=== PATIENT | male | born 1980 | race Caucasian/White ===

== ENCOUNTER 2018-12-09 11:45 | Emergency (ER) | payer BC ==
[2018-12-09 11:55] VITALS: BMI 38.9
--- NOTE | 2018-12-09 13:51 | PDOC ---
History of Present Illness - General Chief Complaint: Pain, Acute Stated Complaint: ABDOMINAL PAIN Time Seen by Provider: 12/09/18 13:44 History Source: Patient Exam Limitations: No Limitations Past History - Travel Traveled outside of the country in the last 30 days: No Close contact w/someone who was outside of country & ill: No - Past Medical History Allergies/Adverse Reactions: Allergies Allergy/AdvReac Type Severity Reaction Status Date / Time No Known Allergies Allergy Verified 12/09/18 11:53 Home Medications: Ambulatory Orders NK [No Known Home Medication] 12/09/18 Asthma: Yes COPD: No - Immunization History Immunization Up to Date: Yes - Suicide/Smoking/Psychosocial Hx Smoking History: Current every day smoker Information on smoking cessation initiated: No Hx Alcohol Use: No Drug/Substance Use Hx: No Review of Systems - Review of Systems Able to Perform ROS?: Yes Comments:: 12/09/18 13:46 CONSTITUTIONAL: Absent: fever, chills, diaphoresis, generalized weakness, malaise, loss of appetite HEENT: Absent: rhinorrhea, nasal congestion, throat pain, throat swelling, difficulty swallowing, mouth swelling, ear pain, eye pain, visual Changes CARDIOVASCULAR: Absent: chest pain, loss of consciousness, palpitations, irregular heart rate, peripheral edema RESPIRATORY: Absent: cough, shortness of breath, dyspnea with exertion, orthopnea, wheezing, stridor, hemoptysis GASTROINTESTINAL: Present: LLQ pain Absent: abdominal distension, nausea, vomiting, diarrhea, constipation, melena, hematochezia GENITOURINARY: Absent: dysuria, frequency, urgency, hesitancy, hematuria, flank pain, genital pain MUSCULOSKELETAL: Absent: myalgia, arthralgia, joint swelling SKIN: Absent: rash, itching, pallor HEMATOLOGIC/IMMUNOLOGIC: Absent: easy bleeding, easy bruising, lymphadenopathy, frequent infections ENDOCRINE: Absent: unexplained weight gain, unexplained weight loss, heat intolerance, cold intolerance NEUROLOGIC: Absent: headache, focal weakness or paresthesias, dizziness, unsteady gait, seizure, mental status changes, bladder or bowel incontinence PSYCHIATRIC: Absent: anxiety, depression, suicidal or homicidal ideation, hallucinations. Is the patient limited German proficient: No *Physical Exam - Vital Signs Last Vital Signs Temp Pulse Resp BP Pulse Ox 98.0 F 100 H 18 133/79 96 12/09/18 11:53 12/09/18 11:53 12/09/18 11:53 12/09/18 11:53 12/09/18 11:53 - Physical Exam Comments: 12/09/18 13:51 GENERAL: Well developed, well nourished. Awake and alert. No acute distress. HEENT: Normocephalic, atraumatic. PERRLA, EOMI. No conjunctival pallor. Sclera are non- icteric. Moist mucous membranes. Oropharynx is clear. NECK: Supple. Full ROM. No JVD. Carotid pulses 2+ and symmetric, without bruits. No thyromegaly. No lymphadenopathy. CARDIOVASCULAR: Regular rate and rhythm. No murmurs, rubs, or gallops. Distal pulses are 2+ and symmetric. PULMONARY: No evidence of respiratory distress. Lungs clear to auscultation bilaterally. No wheezing, rales or rhonchi. ABDOMINAL: TTP of the LLQ. Soft. Non-tender. Non-distended. No rebound or guarding. No organomegaly. Normoactive bowel sounds. MUSCULOSKELETAL Normal range of motion at all joints. No bony deformities or tenderness. No CVA tenderness. EXTREMITIES: No cyanosis. No clubbing. No edema. No calf tenderness. SKIN: Warm and dry. Normal capillary refill. No rashes. No jaundice. NEUROLOGICAL: Alert, awake, appropriate. Cranial nerves 2-12 intact. No deficits to light touch and temperature in face, upper extremities and lower extremities. No motor deficits in the in face, upper extremities and lower extremities. Normoreflexic in the upper and lower extremities. Normal speech. Toes are down- going bilaterally. Gait is normal without ataxia. PSYCHIATRIC: Cooperative. Good eye contact. Appropriate mood and affect. ED Treatment Course - LABORATORY CBC & Chemistry Diagram: 12/09/18 14:10 12/09/18 14:20 Medical Decision Making - Medical Decision Making 12/09/18 16:50 The patient is a 38-year-old male with no past medical history who presents to the ER today with 4 days of left lower quadrant pain. He states that the pain comes and goes. He states that the pain is dependent on the way he moves. He describes the pain as a stabbing pain. He has not tried taking any medication for the pain. Denies fevers, chills, chest pain, short of breath, nausea, vomiting, diarrhea and constipation. Past surgical history of lap band placement in 2008. Surgery performed by Dr. Meek at [facility] in [facility]; last f/u in 2010. A/P: Left lower quadrant pain Differential diagnosis includes but is not limited to diverticulitis, colitis, viral syndrome, pyelo. Less likely an appendicitis or SBO On exam patient with tenderness to the left lower quadrant. Abdomen is otherwise soft with no rebound or guarding CTAP with IV contrast obtained. Results show approximately a 5.4 x 3.7 x 3.4 focus of mesenteric soft tissue stranding consistent with localized edema ventral to the lower third of the descending colon. 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 No evidence of acute diverticulitis at this time. Consult placed to Dr. Sidhu Pt currently eating Doritos in the vertical room. Appears well. Denies pain at this time. 12/09/18 17:[address] Sidhu; will come and evaluate in the ED *DC/Admit/Observation/Transfer Diagnosis at time of Disposition: LLQ abdominal pain - Discharge Dispostion Disposition: HOME Condition at time of disposition: Improved - Referrals - Patient Instructions Additional Instructions: Thank you for choosing [facility]. It was a pleasure taking care of you. 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 Mar Return to the Emergency Department if your symptoms worsen or persist or have other concerning symptoms. - Post Discharge Activity
[2018-12-09] MEDS ORDERED: SODIUM CHLORIDE 1,000 ML IV STA (13:52)
[2018-12-09] MEDS ORDERED: ACETAMINOPHEN 1000 MG/100 ML VIAL (NON FORMULARY) IVPB ONE (13:52)
[2018-12-09] MEDS ORDERED: ACETAMINOPHEN INJECTION 100 ML IVPB ONE (14:14)
[2018-12-09 14:32] LABS: BASO % 0.8 % (0-2.0); EOS % 1.5 % (0-4.5); HEMATOCRIT 43.8 % (35.4-49); LYMPH % 20.1 % (8-40); MCH 30.8 pg (25.7-33.7); MCHC 34.3 g/dl (32.0-35.9); MEAN PLT VOLUME 8.8 fl (7.5-11.1); MONO % 8.3 % (3.8-10.2); NEUT % 69.3 % (42.8-82.8); PLATELET COUNT 186 K/MM3 (134-434); RBC 4.86 M/mm3 (4.00-5.60); RDW 13.9 % (11.9-15.9); WHITE BLOOD COUNT 10.3 K/mm3 (4.0-10.0)
[2018-12-09 14:36] LABS: URINE APPEARANCE CLEAR; URINE BILIRUBIN NEGATIVE (NEGATIVE); URINE COLOR YELLOW; URINE GLUCOSE (UA) NEGATIVE (NEGATIVE); URINE KETONE NEGATIVE (NEGATIVE); URINE LEUK ESTERASE NEGATIVE (NEGATIVE); URINE NITRITE NEGATIVE (NEGATIVE); URINE PROTEIN NEGATIVE (NEGATIVE); URINE UROBILINOGEN 0.2 mg/dL (0.2-1.0)
[2018-12-09 15:02] LABS: INR 0.97 (0.83-1.09); PROTHROMBIN TIME (PATIENT) 11.4 SEC (9.7-13.0)
[2018-12-09 15:08] LABS: ALBUMIN 3.3 g/dl (3.4-5.0); ALK PHOS 86 U/L (45-117); ANION GAP 3 MMOL/L (8-16); BILIRUBIN,TOTAL 0.3 mg/dL (0.2-1); BLOOD UREA NITROGEN 11 mg/dL (7-18); CALCIUM 9.2 mg/dL (8.5-10.1); CHLORIDE 105 mmol/L (98-107); CO2 28 mmol/L (21-32); CREATININE 0.7 mg/dL (0.55-1.3); GLUCOSE,RANDOM 107 mg/dL (74-106); POTASSIUM 4.3 mmol/L (3.5-5.1); SGOT/AST 15 U/L (15-37); SGPT/ALT 22 U/L (13-61); SODIUM 136 mmol/L (136-145)
--- NOTE | 2018-12-09 19:54 | PDOC ---
*Physical Exam - Vital Signs Last Vital Signs Temp Pulse Resp BP Pulse Ox 98.1 F 83 18 127/76 97 12/09/18 17:41 12/09/18 17:41 12/09/18 17:41 12/09/18 17:41 12/09/18 17:41 ED Treatment Course - LABORATORY CBC & Chemistry Diagram: 12/09/18 14:10 12/09/18 14:20 - ADDITIONAL ORDERS Additional order review: Laboratory Results 12/09/18 12/09/18 12/09/18 14:20 14:10 14:10 PT with INR 11.40 INR 0.97 Sodium 136 Potassium 4.3 Chloride 105 Carbon Dioxide 28 Anion Gap 3 L BUN 11 Creatinine 0.7 Creat Clearance w eGFR 124.90 Random Glucose 107 H Calcium 9.2 Total Bilirubin 0.3 AST 15 ALT 22 Alkaline Phosphatase 86 Total Protein 7.0 Albumin 3.3 L Urine Color Yellow Urine Appearance Clear Urine pH 5.0 Ur Specific [place] 1.025 Urine Protein Negative Urine Glucose (UA) Negative Urine Ketones Negative Urine Blood Negative Urine Nitrite Negative Urine Bilirubin Negative Urine Urobilinogen 0.2 Ur Leukocyte Esterase Negative 12/09/18 14:10 RBC 4.86 MCV 90.0 MCHC 34.3 RDW 13.9 MPV 8.8 Neutrophils % 69.3 Lymphocytes % 20.1 Monocytes % 8.3 Eosinophils % 1.5 Basophils % 0.8 - Medications Given in the ED: ED Medications Discontinued Medications Generic Name Dose Route Start Last Admin Trade Name Freq PRN Reason Stop Dose Admin Acetaminophen 1,000 mg 12/09/18 13:52 12/09/18 14:29 Ofirmev Injection - IVPB 12/09/18 13:53 1,000 mg ONCE ONE Administration Sodium Chloride 1,000 mls @ 1,000 mls/hr 12/09/18 13:52 12/09/18 14:29 Normal Saline - IV 12/09/18 14:51 1,000 mls/hr ASDIR STA Administration Medical Decision Making - Medical Decision Making Patient signed out to me by PALMER Fan Patient resting in NAD Spoke to Dr. Sidhu, who states currently swamped and about to operate; states patient would need to f/u with his prior bariatric surgeon; tx for omental infarction is NSAIDs Patient resting in NAD; is in no pain and was already tolerating PO as was told during signout Patient's prior surgeon was Dr. Mar (from [facility]) Patient appears well; advised to f/u with his prior bariatric surgeon Stable for d/c Plan d/c with Dr. Argueta 12/09/18 19:49 *DC/Admit/Observation/Transfer Diagnosis at time of Disposition: LLQ abdominal pain - Discharge Dispostion Disposition: HOME Condition at time of disposition: Improved Decision to Admit order: No - Referrals - Patient Instructions Additional Instructions: Thank you for choosing [facility]. It was a pleasure taking care of you. 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 Mar Return to the Emergency Department if your symptoms worsen or persist or have other concerning symptoms. - Post Discharge Activity
[2018-12-09 20:16] VITALS: BP 133/77; PULSE 78; TEMP 98.3
== END 2018-12-09 20:24 | disposition home or self-care (01) ==
LOC: JER 11:45
PROC: 3E033NZ Introduction of Analgesics, Hypnotics, Sedatives into Peripheral Vein, Percutaneous Approach (ICD-10-PCS; principal; 2018-12-09)
DX: R10.32 Left lower quadrant pain (principal); Z98.84 Bariatric surgery status
CPT/HCPCS: 36415; 74177-TC; 80053; 81003; 85025; 85610; 87086; 99284-25; J0131; J7030

== ENCOUNTER 2019-08-29 12:48 | Inpatient (IN) | payer BC ==
[2019-08-29] MEDS ORDERED: SODIUM CHLORIDE 0.9% 500 ML INFUS.BAG IV ONE (15:07)
[2019-08-29] MEDS ORDERED: PIPERACILLIN/TAZOB 4.5 GM 4.5 GM in DEXTROSE 5%-WATER 100 ML IVPB ONE (15:07)
--- NOTE | 2019-08-29 15:16 | PDOC ---
History of Present Illness - General Chief Complaint: Abscess Boil Stated Complaint: CYST/ RIGHT BUTTOCK Time Seen by Provider: 08/29/19 14:54 History Source: Patient Exam Limitations: No Limitations - History of Present Illness Initial Comments: 39 y/o F, w/ pmh of multiple lower back abscess, presents to the ED c/o of redness, pain and swelling of the right buttocks. Pt states that he noticed pain and tenderness 7 days ago which has worsened since onset. He has not taken anything to improve his pain. He reports hx of multiple lower back abscess above his coccyx. Denies f/c/n/v/d/sob/chest pain, abdominal pain. 08/29/19 15:09 08/29/19 15:54 Associated Symptoms: reports: denies symptoms. denies: chest pain, cough, diaphoresis, nausea/vomiting, shortness of breath Past History - Travel Traveled outside of the country in the last 30 days: No Close contact w/someone who was outside of country & ill: No - Past Medical History Allergies/Adverse Reactions: Allergies Allergy/AdvReac Type Severity Reaction Status Date / Time No Known Allergies Allergy Verified 08/29/19 13:02 Home Medications: Ambulatory Orders NK [No Known Home Medication] 12/09/18 Asthma: Yes Cardiac Disorders: Yes COPD: No - Immunization History Immunization Up to Date: Yes - Psycho Social/Smoking Cessation Hx Smoking History: Current every day smoker Number of Cigarettes Smoked Daily: 20 Information on smoking cessation initiated: No Hx Alcohol Use: No Drug/Substance Use Hx: No Review of Systems - Review of Systems Able to Perform ROS?: Yes Is the patient limited Pakistani proficient: No Constitutional: Yes: Symptoms Reported. No: Chills, Fever HEENTM: Yes: Symptoms Reported. No: Blurred Vision, Tearing Respiratory: Yes: Symptoms reported. No: Cough, Shortness of Breath, Wheezing Cardiac (ROS): Yes: Symptoms Reported. No: Chest Pain, Chest Tightness ABD/GI: Yes: Symptoms Reported. No: Abdominal Distended, Diarrhea, Nausea : Yes: Symptoms Reported, Pain (perianal pain), Lesions. No: Burning, Dysuria , Discharge, Testicular Mass, Testicular Swelling, Testicular Pain Neurological: Yes: Symptoms reported. No: Headache, Numbness All Other Systems: Reviewed and Negative *Physical Exam - Vital Signs Last Vital Signs Temp Pulse Resp BP Pulse Ox 98.7 F 115 H 18 134/99 96 08/29/19 13:03 08/29/19 13:03 08/29/19 13:03 08/29/19 13:03 08/29/19 13:03 - Physical Exam General Appearance: Yes: Nourished, Appropriately Dressed, Apparent Distress HEENT: positive: EOMI, SHAN, Normal ENT Inspection, Pharynx Normal Neck: positive: Trachea midline, Normal Thyroid, Supple Respiratory/Chest: positive: Lungs Clear, Normal Breath Sounds. negative: Crackles, Wheezing Cardiovascular: positive: Regular Rhythm, Regular Rate, S1, S2. negative: Murmur, Gallop/S3, Gallop/S4 Vascular Pulses: Dorsalis-Pedis (R): 2+, Doralis-Pedis (L): 2+ Gastrointestinal/Abdominal: positive: Normal Bowel Sounds, Soft. negative: Guarding, Rebound Male Genitalia: positive: other (perianal mass 8x5, erythema, swelling, nonfluctuant, deep and firm, tender to touch, appears to extend toward the raphe ) Neurologic: positive: Fully Oriented, Alert, Normal Mood/Affect ED Treatment Course - LABORATORY CBC & Chemistry Diagram: 08/29/19 15:05 08/29/19 15:05 - RADIOLOGY Radiology Studies Ordered: Category Date Time Status PELVIS CT WITH CONTRAST [CT] Stat CT Scan 08/29/19 15:04 Ordered Medical Decision Making - Medical Decision Making 39 y/o F, w/ pmh of multiple lower back abscess, presents to the ED c/o of redness, pain and swelling of the right buttocks. #Right perianal abscess 2/2 to perianal vs perirectal abscess- need to r/o pt is not diabetic 8x5 tender, abscess, deep CBC, CMP, PT/INR IVF CT pelvis- IV contrast and contrast enema Temp of 100.[address] Castro, he advised ED to attempt drainage of the abscess, however, due to the size and difficulty accessing it We will defer to surgery to drain it. Will be admitting pt tonight for surgical consult in the morning. 08/29/19 15:54 08/29/19 16:07 08/29/19 19:02 Discharge - Discharge Information Problems reviewed: Yes Clinical Impression/Diagnosis: Perianal abscess Condition: Stable - Admission Yes - Follow up/Referral - Patient Discharge Instructions - Post Discharge Activity
[2019-08-29] MEDS ORDERED: PIPERACILLIN/TAZOB 4.5 GM 4.5 GM/100 ML BAG IVPB ONE (15:23)
[2019-08-29 15:26] LABS: EOS % 0.8 % (0-4.5); HEMATOCRIT 44.7 % (35.4-49); HEMOGLOBIN 14.9 GM/dL (11.7-16.9); LYMPH % 14.3 % (8-40); MCH 29.8 pg (25.7-33.7); MCHC 33.4 g/dl (32.0-35.9); MEAN CELL VOLUME 89.4 fl (80-96); MEAN PLT VOLUME 8.6 fl (7.5-11.1); MONO % 10.9 % (3.8-10.2); PLATELET COUNT 217 K/MM3 (134-434); RDW 13.5 % (11.9-15.9); WHITE BLOOD COUNT 12.1 K/mm3 (4.0-10.0)
[2019-08-29 15:39] LABS: INR 1.02 (0.83-1.09)
--- NOTE | 2019-08-29 15:49 | PDOC ---
Documentation entered by Karen Mcdonald SCRIBE, acting as scribe for Alessandro Garcia MD. Alessandro Garcia MD: This documentation has been prepared by the Harry cornell Brenda, SCRIBE, under my direction and personally reviewed by me in its entirety. I confirm that the documentation accurately reflects all work, treatment, procedures, and medical decision making performed by me. Attending Attestation - Resident Resident Name: Devang Brizuela - ED Attending Attestation I have performed the following: I have examined & evaluated the patient, The case was reviewed & discussed with the resident, I agree w/resident's findings & plan, Exceptions are as noted - HPI HPI: 08/29/19 15:29 The patient is a 39 year old female, with a significant PMH of asthma and multiple lower back abscesses (above coccyx) who presents to the emergency department due to 7 days of worsening redness, pain and swelling of the right buttocks, which is painful and tender The patient denies chest pain, shortness of breath, headache and dizziness. Denies fever, chills, nausea, vomiting, diarrhea and constipation. Denies any urinary symptoms. Allergies: NKA Past surgical history: Lap Band (2008) Social history: Current everyday smoker - Physicial Exam PE: 08/29/19 15:47 Patient is awake and alert, obese, in no significant distress Normocephalic and atraumatic PERRLA, EOMI CTA RRR Abdomen is soft, nontender, nondistended + Large, approximately 10 to 12 cm area of well demarcated erythema to the right gluteal area; with a central approximately 6 cm area of induration, which is tender to palpation - Medical Decision Making 08/29/19 15:49 39-year-old male presents with signs and symptoms of acute perirectal/perianal abscess. Will obtain CBC/CMP/pelvic CT with IV and rectal contrast. Will administer IV Zosyn. Will reassess. Will consider admission for OR incision and drainage by general surgery.
[2019-08-29 16:07] LABS: ALBUMIN 3.2 g/dl (3.4-5.0); BILIRUBIN,TOTAL 0.4 mg/dL (0.2-1); BLOOD UREA NITROGEN 10.9 mg/dL (7-18); CALCIUM 8.9 mg/dL (8.5-10.1); CREATININE 0.7 mg/dL (0.55-1.3); POTASSIUM 4.3 mmol/L (3.5-5.1); TOT PROT 7.1 g/dl (6.4-8.2)
[2019-08-29] MEDS ORDERED: VANCOMYCIN 1 GM in D5W (PRE-DOCKED) 1,000 MG/250 ML IVPB ONE (19:11)
--- NOTE | 2019-08-29 19:22 | PN ---
Teaching Attending Note Name of Resident: Jack Mak ATTENDING PHYSICIAN STATEMENT I saw and evaluated the patient. I reviewed the resident's note and discussed the case with the resident. I agree with the resident's findings and plan as documented. SUBJECTIVE: Patient is a 39 year old woman with a significant PMH of ?Prediabetes, Lap band surgery, Asthma, Tobacco use and multiple lower back abscesses (above coccyx) who presents to the emergency department due to 7 days of worsening redness, pain and swelling of the right buttocks, which is painful and tender. The patient denies chest pain, shortness of breath, headache and dizziness. Denies fever, chills, nausea, vomiting, diarrhea and constipation. No recent travel or sick contacts. 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 Lives at home with . Denies any urinary symptoms. Denies alcohol or illicit drug use. Has FH of DM and cervical cancer. OBJECTIVE: Alert Vital Signs Period Temp Pulse Resp BP Sys/Garcia Pulse Ox Last 24 Hr 98.4 F-100.3 F 92-115 18-18 125-134/58-99 96-98 HEENT: No Jaundice, eye redness or discharge, PERRLA, EOMI. Normocephalic, atraumatic. External ears are normal and hearing is grossly intact. No nasal discharge. Neck: Supple, nontender. No palpable adenopathy or thyromegaly. No JVD Chest: Good effort. Clear to auscultation and percussion. Heart: Regular. No S3, rub or murmur Abdomen: Not distended, soft, nontender and no HSM. No rebound or guarding. Normal bowel sounds. Ext: Peripheral pulses intact. No leg edema. Skin: Warm and dry. No petechiae, rash or ecchymosis. An area of erythema to the right gluteal area about 10 cm X 12 cm; with a central area of induration, tender to palpation. Neuro: Alert. Oriented x3. CN 2-12 grossly intact. Sensation grossly intact in all four extremities and DTR are symmetric. Psych: Appropriate mood and affect. Good insight. Current Medications Generic Name Dose Route Start Last Admin Trade Name Freq PRN Reason Stop Dose Admin Acetaminophen 1,000 mg 08/29/19 20:41 Ofirmev Injection - IVPB Q6H PRN PAIN LEVEL 1-5 Sodium Chloride 1,000 mls @ 100 mls/hr 08/29/19 23:00 Normal Saline - IV ASDIR SAJAN Vancomycin HCl 1,000 mg/ 250 mls @ 166.667 mls/hr 08/30/19 10:00 Dextrose IVPB Q12H SAJAN Protocol Piperacillin Sod/Tazobactam 50 mls @ 100 mls/hr 08/30/19 02:00 Sod 3.375 gm/ Dextrose IVPB Q8H-IV SAJAN Protocol Insulin Aspart 1 vial 08/29/19 20:45 Novolog Vial Sliding Scale - SQ Q6H SAJAN Protocol Nicotine 21 mg 08/29/19 20:45 Nicoderm Patch - TD DAILY SAJAN Nicotine Polacrilex 4 mg 08/29/19 20:33 Nicorette Gum - BUC Q2H PRN NICOTINE REPLACEMENT RX Home Medications Medication Instructions Recorded NK [No Known Home Medication] 12/09/18 Abnormal Lab Results 08/29/19 08/29/19 15:05 15:05 WBC 12.1 H Absolute Neuts (auto) 8.8 H Monocytes % 10.9 H Anion Gap 5 L AST 14 L Albumin 3.2 L ASSESSMENT AND PLAN: 1. Perianal abscess - Results of pelvic CT pending. Being treated with IV Vancomycin and Zosyn. Will keep him NPO. Surgery consulted. Will continue comprehensive care for all of patients comorbid conditions. 2. Hypoalbuminemia - Possibly due to combined effects of malnutrition and inflammation associated with comorbid chronic conditions. Will ensure adequate dietary protein intake and also consult database support. Urinalysis pending. 3. Prediabetes - Will implement sliding scale insulin regimen. Check HbA1c. Provide comprehensive diabetes care with patient teaching and counseling about the importance of adherence to prescribed diabetes regimen, euglycemia, eye care and foot care. 4. Tobacco Use Counseled on risks associated with tobacco use. We will provide patient all the necessary assistance to facilitate smoking cessation and prescribe Nicotine patch. 5. Obesity Counseled on the risks associated with obesity. Will provide patient all the necessary assistance, counseling and positive reinforcement to facilitate weight loss. Consult database support. 6. DVT prophylaxis - SCD, Early ambulation. 7. Advance directives - Full code
[2019-08-29] MEDS ORDERED: VANCOMYCIN 1 GRAM (PRE-DOCKED) 1,000 MG/250 ML BAG IVPB ONE (19:37)
--- NOTE | 2019-08-29 19:44 | HP ---
CHIEF COMPLAINT: Right buttock pain PCP: HISTORY OF PRESENT ILLNESS: Patient is a 39 year old male with distant history of diabetes mellitus ( currently not on any medications), obesity, prior maricruz-anal abscess, presents with complaint of right buttock pain. States that symptoms began 7 days ago, starting as a small cyst that spontaneously ruptured in warm shower. The area subsequently became more painful, erythematous, and progressed indurated over the past three days. Denies mechanical trauma to the area. Denies recent antibiotics. Patient endorses similar symptoms approx 14 years ago, with right buttock perianal abscess that was treated with incision and drainage. Since that episode, patient has only had small cysts in the area, that spontaneously resolved without intervention or antibiotics. Patient admits subjective chills, and sweats. Denies chest pain, palpitations, shortness of breath, abdominal pain , nausea, vomiting, hematemesis, diarrhea, constipation, melena, hematochezia. ER course was notable for: (1) CT abdomen pelvis (2) WBC 12.1, temperature 100.3F orally (3) Recent Travel: denies PAST MEDICAL HISTORY: diabetes mellitus, obesity, maricruz-anal abscess PAST SURGICAL HISTORY: laparoscopic gastric band (15 years ago), incision and drainage perianal abscess (14 years ago), knee surgery Social History: Lives with . 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 Independent in activities daily living. Smoking: Currently smokes approx 20 cigarettes per day; smoking for past 20 years Alcohol: Denies alcohol consumption Drugs: Denies illicit drug use. Allergies No Known Allergies Allergy (Verified 08/29/19 13:02) HOME MEDICATIONS: Home Medications Medication Instructions Recorded NK [No Known Home Medication] 12/09/18 REVIEW OF SYSTEMS CONSTITUTIONAL: Absent: fever, chills, diaphoresis, generalized weakness, malaise, loss of appetite, weight change HEENT: Absent: rhinorrhea, nasal congestion, throat pain, throat swelling, difficulty swallowing, mouth swelling, ear pain, eye pain, visual changes CARDIOVASCULAR: Absent: chest pain, syncope, palpitations, irregular heart rate, lightheadedness , peripheral edema RESPIRATORY: Absent: cough, shortness of breath, dyspnea with exertion, orthopnea, wheezing, stridor, hemoptysis GASTROINTESTINAL: Absent: abdominal pain, abdominal distension, nausea, vomiting, diarrhea, constipation, melena, hematochezia GENITOURINARY: Absent: dysuria, frequency, urgency, hesitancy, hematuria, flank pain, genital pain MUSCULOSKELETAL: Absent: myalgia, arthralgia, joint swelling, back pain, neck pain SKIN: Admits: pain at right buttock. Absent: itching, pallor HEMATOLOGIC/IMMUNOLOGIC: Absent: easy bleeding, easy bruising, lymphadenopathy, frequent infections ENDOCRINE: Absent: unexplained weight gain, unexplained weight loss, heat intolerance, cold intolerance NEUROLOGIC: Absent: headache, focal weakness or paresthesias, dizziness, unsteady gait, seizure, mental status changes, bladder or bowel incontinence PSYCHIATRIC: Absent: anxiety, depression, suicidal or homicidal ideation, hallucinations. PHYSICAL EXAMINATION Vital Signs - 24 hr 08/29/19 08/29/19 13:03 19:04 Temperature 98.7 F 100.3 F H Pulse Rate 115 H Pulse Rate [ 92 H Radial] Respiratory 18 18 Rate Blood Pressure 134/99 Blood Pressure 132/58 L [Right Arm] O2 Sat by Pulse 96 98 Oximetry (%) GENERAL: Awake, alert, and fully oriented, in no acute distress. HEAD: Normal with no signs of trauma. EYES: Pupils equal, round and reactive to light, extraocular movements intact, sclera anicteric, conjunctiva clear. EARS, NOSE, THROAT: Oropharynx clear without exudates. Moist mucous membranes. NECK: Normal range of motion, supple without lymphadenopathy, JVD, or masses. LUNGS: Breath sounds equal, clear to auscultation bilaterally. No wheezes, and no crackles. No accessory muscle use. HEART: Regular rate and rhythm, normal S1 and S2 without murmur, rub or gallop. ABDOMEN: Obese abdomen. Soft, nontender, not distended. Normoactive bowel sounds. No guarding, no rebound tenderness. Laparoscopic surgery scars well healed, clean, dry. MUSCULOSKELETAL: Normal range of motion at all joints. No bony deformities or tenderness. Strength 5/5 bilateral upper and lower extremities. EXTREMITIES: 2+ radial, dorsalis pedis pulses bilaterally, warm, well-perfused. No cyanosis. No clubbing. No peripheral edema bilateral lower extremities. NEUROLOGICAL: Cranial nerves II-XII intact. Normal speech. Negative gross focal deficits. PSYCHIATRIC: Cooperative. Appropriate mood and affect. SKIN: Area of 10cm x 6cm erythma with 5cm x 5m area of induration at right lower buttock. Negative fluctuance, drainage, bleeding, or streaking. Tender to palpation. Laboratory Results - last 24 hr 08/29/19 08/29/19 08/29/19 15:05 15:05 15:05 WBC 12.1 H RBC 5.00 Hgb 14.9 Hct 44.7 MCV 89.4 MCH 29.8 MCHC 33.4 RDW 13.5 Plt Count 217 MPV 8.6 Absolute Neuts (auto) 8.8 H Neutrophils % 73.0 Lymphocytes % 14.3 D Monocytes % 10.9 H Eosinophils % 0.8 Basophils % 1.0 Nucleated RBC % 0 PT with INR 12.00 INR 1.02 Sodium 139 Potassium 4.3 Chloride 105 Carbon Dioxide 29 Anion Gap 5 L BUN 10.9 Creatinine 0.7 Est GFR (CKD-EPI)AfAm 135.86 Est GFR (CKD-EPI)NonAf 117.22 Random Glucose 102 Calcium 8.9 Total Bilirubin 0.4 AST 14 L ALT 21 Alkaline Phosphatase 78 Total Protein 7.1 Albumin 3.2 L Blood Type Antibody Screen 08/29/19 15:05 WBC RBC Hgb Hct MCV MCH MCHC RDW Plt Count MPV Absolute Neuts (auto) Neutrophils % Lymphocytes % Monocytes % Eosinophils % Basophils % Nucleated RBC % PT with INR INR Sodium Potassium Chloride Carbon Dioxide Anion Gap BUN Creatinine Est GFR (CKD-EPI)AfAm Est GFR (CKD-EPI)NonAf Random Glucose Calcium Total Bilirubin AST ALT Alkaline Phosphatase Total Protein Albumin Blood Type A POSITIVE Antibody Screen Negative ASSESSMENT/PLAN: Patient is a 39 year old male with distant history of diabetes mellitus ( currently not on any medications), obesity, prior maricruz-anal abscess, presents with complaint of right buttock pain. Admitted for right perirectal abscess. Right perirectal abscess -WBC 12.1, temperature 100.3F orally -CT abdomen/ pelvis reveals 4cm x 3.2cm abscess in right paramedian subcutaneous gluteal fat; negative intrapelvic fluid (preliminary read). Follow official reading. -Follow blood cultures -Continue Vancomycin 1000mg IV BID, Zosyn 3.375mg IV Q8 Hours -General surgery consult (Dr. Bhatt) -ID consult (Dr. Mercedes) -NPO after midnight in anticipation of surgical incision and drainage. Pt/ INR , PTT, type and cross ordered. -IV normal saline at 100mL/ hour -Pain control with Ofirmev 1000mg IV Q6 hours PRN History of diabetes mellitus -Obtain HbA1c. Patient reports history of diabetes that resolved after laparoscopic gastric band surgery 15 years ago. Patient currently not on any oral hypglycemics, or insulin. -For now, will monitor with fingerstick blood glucose monitoring Q6 hours, and cover with insulin sliding scale. Obesity -BMI 38; s/p laparoscopic gastric band surgery. -architectural sales consultant consult. Nicotine dependence -Counselled regarding smoking cessation -Nicotine patch 21mg transdermal daily -Nicorette gum 4mg Q2 hours PRN FEN -IV normal saline at 100mL/ hour -Follow BMP -Clear liquid diet. NPO after midnight Prophylaxis -SCDs bilateral lower extremities. Holding chemical anticoagulation pending general surgery evaluation Disposition -Admit to medical surgical floor. Visit type - Emergency Visit Emergency Visit: Yes ED Registration Date: 08/29/19 Care time: The patient presented to the Emergency Department on the above date and was hospitalized for further evaluation of their emergent condition. - New Patient This patient is new to me today: Yes Date on this admission: 08/30/19 - Critical Care Critical Care patient: No ATTENDING PHYSICIAN STATEMENT I saw and evaluated the patient. I reviewed the resident's note and discussed the case with the resident. I agree with the resident's findings and plan as documented. SUBJECTIVE: OBJECTIVE: ASSESSMENT AND PLAN:
[2019-08-29] MEDS ORDERED: NICOTINE POLACRILEX 4 MG GUM BUC PRN (20:33)
[2019-08-29] MEDS ORDERED: INSULIN SLIDING SCALE (NOVOLOG) 1 VIAL SQ SCH (20:45)
[2019-08-29] MEDS: NICOTINE 21 MG/24 HOURS TOPICAL PATCH TD SCH (20:50)
[2019-08-29] MEDS: SODIUM CHLORIDE 1,000 ML IV SCH (23:20)
[2019-08-29] MEDS: ACETAMINOPHEN 1000 MG/100 ML VIAL (NON FORMULARY) IVPB PRN (23:36)
[2019-08-30] MEDS ORDERED: DEXTROSE 5%-WATER - 50 ML IVPB ONE ×2 (00:47→09:19)
[2019-08-30] MEDS ORDERED: PIPERACILLIN/TAZOBACTAM 3.375 GM VIAL IVPB ONE ×2 (00:47→09:19)
[2019-08-30] MEDS: PIPERACILLIN/TAZOB 3.375 GM 3.375 GM in DEXTROSE 5%-WATER - 50 ML IVPB SCH ×2 (01:40→09:29)
[2019-08-30] MEDS ORDERED: PIPERACILLIN/TAZOB 3.375 GM 3.375 GM in DEXTROSE 5%-WATER - 50 ML IVPB SCH (02:00)
[2019-08-30] MEDS ORDERED: VANCOMYCIN 1 GRAM (PRE-DOCKED) 1,000 MG/250 ML BAG IVPB SCH (08:00)
[2019-08-30] MEDS: INSULIN SLIDING SCALE (NOVOLOG) 1 VIAL SQ SCH ×2 (08:12→12:11)
[2019-08-30 09:15] LABS: HEMATOCRIT 41.6 % (35.4-49); HEMOGLOBIN 14.1 GM/dL (11.7-16.9); MCH 29.9 pg (25.7-33.7); MCHC 33.8 g/dl (32.0-35.9); MEAN CELL VOLUME 88.4 fl (80-96); MEAN PLT VOLUME 8.7 fl (7.5-11.1); PLATELET COUNT 200 K/MM3 (134-434); RBC 4.71 M/mm3 (4.00-5.60); RDW 13.9 % (11.9-15.9); WHITE BLOOD COUNT 9.7 K/mm3 (4.0-10.0)
[2019-08-30 09:25] LABS: ALBUMIN 2.8 g/dl (3.4-5.0); BILIRUBIN,TOTAL 0.5 mg/dL (0.2-1); BLOOD UREA NITROGEN 8.2 mg/dL (7-18); CALCIUM 8.4 mg/dL (8.5-10.1); CREATININE 0.7 mg/dL (0.55-1.3); PHOSPHOROUS 3.6 mg/dL (2.5-4.9); POTASSIUM 4.1 mmol/L (3.5-5.1); TOT PROT 6.2 g/dl (6.4-8.2)
[2019-08-30] MEDS: NICOTINE 21 MG/24 HOURS TOPICAL PATCH TD SCH (09:29)
[2019-08-30] MEDS: SODIUM CHLORIDE 1,000 ML IV SCH (09:30)
[2019-08-30 09:36] LABS: INR 1.04 (0.83-1.09); PROTHROMBIN TIME (PATIENT) 12.3 SEC (9.7-13.0)
[2019-08-30 09:38] LABS: ACTIVATED PTT 29.5 SECONDS (25.2-36.5)
[2019-08-30] MEDS ORDERED: VANCOMYCIN 1,000 MG in DEXTROSE 5%-WATER - 250 ML IVPB SCH (10:00)
[2019-08-30] MEDS ORDERED: LIDOCAINE 1%-EPI 1:100,000 30 ML MDV IJ ONE (10:15)
--- NOTE | 2019-08-30 12:02 | PN ---
Progress Note (short form) - Note Progress Note: surgery i&d done of maricruz-rectal abscess at 1:00 position in lithotomy. pressure dressing today. recommend sitz bath tid with epsom salt starting tomorrow. recommend 5 days augmentin. f/u in 3 weeks to r/o fistula formation.
[2019-08-30] MEDS: ACETAMINOPHEN 1000 MG/100 ML VIAL (NON FORMULARY) IVPB PRN (13:06)
--- NOTE | 2019-08-30 13:11 | PN ---
Progress Note (short form) - Note Progress Note: ID CONSULT DICTATED S/P I&D R PERIRECTAL ABSCESS MAY SUBSTITUTE PO AUGMENTIN X 7D LOCAL WOUND CARE OUTPATIENT SURGICAL F/U
[2019-08-30 14:08] VITALS: BP 120/76; PULSE 72; TEMP 98.6
[2019-08-30 14:10] VITALS: BMI 38.0
--- NOTE | 2019-08-30 15:29 | DS ---
Physical Exam: SUBJECTIVE: Complains of pain/swelling/tenderness R buttock. OBJECTIVE: Fever resolved. Hemodynamically stable. Last Vital Signs Temp Pulse Resp BP Pulse Ox 98.6 F 72 18 120/76 98 08/30/19 11:00 08/30/19 11:00 08/30/19 11:00 08/30/19 11:00 08/30/19 09:00 PHYSICAL EXAM HEENT - Atraumatic, Normocephalic. Heart - S1, S2, RRR Lungs - clear to auscultation Abdomen - soft, non-tender. Bowel Sounds normal. - R buttock discrete erythema/swelling/tenderness Extremities - no edema, no calf tenderness. Neuro - AAO x 3. Tone/Power normal all extremities. Laboratory Results - last 24 hr 08/29/19 08/29/19 08/29/19 08:16 15:05 15:05 WBC 12.1 H RBC 5.00 Hgb 14.9 Hct 44.7 MCV 89.4 MCH 29.8 MCHC 33.4 RDW 13.5 Plt Count 217 MPV 8.6 Absolute Neuts (auto) 8.8 H Neutrophils % 73.0 Lymphocytes % 14.3 D Monocytes % 10.9 H Eosinophils % 0.8 Basophils % 1.0 Nucleated RBC % 0 PT with INR INR PTT (Actin FS) Sodium 139 Potassium 4.3 Chloride 105 Carbon Dioxide 29 Anion Gap 5 L BUN 10.9 Creatinine 0.7 Est GFR (CKD-EPI)AfAm 135.86 Est GFR (CKD-EPI)NonAf 117.22 POC Glucometer Random Glucose 102 Hemoglobin A1c % Calcium 8.9 Phosphorus Magnesium Total Bilirubin 0.4 AST 14 L ALT 21 Alkaline Phosphatase 78 Total Protein 7.1 Albumin 3.2 L Blood Type A POSITIVE Antibody Screen 08/29/19 08/29/19 08/29/19 15:05 15:05 21:34 WBC RBC Hgb Hct MCV MCH MCHC RDW Plt Count MPV Absolute Neuts (auto) Neutrophils % Lymphocytes % Monocytes % Eosinophils % Basophils % Nucleated RBC % PT with INR 12.00 INR 1.02 PTT (Actin FS) Sodium Potassium Chloride Carbon Dioxide Anion Gap BUN Creatinine Est GFR (CKD-EPI)AfAm Est GFR (CKD-EPI)NonAf POC Glucometer 153 Random Glucose Hemoglobin A1c % Calcium Phosphorus Magnesium Total Bilirubin AST ALT Alkaline Phosphatase Total Protein Albumin Blood Type A POSITIVE Antibody Screen Negative 08/30/19 08/30/19 08/30/19 06:19 08:16 08:16 WBC 9.7 RBC 4.71 Hgb 14.1 Hct 41.6 MCV 88.4 MCH 29.9 MCHC 33.8 RDW 13.9 Plt Count 200 MPV 8.7 Absolute Neuts (auto) Neutrophils % Lymphocytes % Monocytes % Eosinophils % Basophils % Nucleated RBC % PT with INR 12.30 INR 1.04 PTT (Actin FS) 29.5 Sodium Potassium Chloride Carbon Dioxide Anion Gap BUN Creatinine Est GFR (CKD-EPI)AfAm Est GFR (CKD-EPI)NonAf POC Glucometer 115 Random Glucose Hemoglobin A1c % Calcium Phosphorus Magnesium Total Bilirubin AST ALT Alkaline Phosphatase Total Protein Albumin Blood Type Antibody Screen 08/30/19 08/30/19 08:16 08:16 WBC RBC Hgb Hct MCV MCH MCHC RDW Plt Count MPV Absolute Neuts (auto) Neutrophils % Lymphocytes % Monocytes % Eosinophils % Basophils % Nucleated RBC % PT with INR INR PTT (Actin FS) Sodium 139 Potassium 4.1 Chloride 106 Carbon Dioxide 28 Anion Gap 5 L BUN 8.2 Creatinine 0.7 Est GFR (CKD-EPI)AfAm 135.86 Est GFR (CKD-EPI)NonAf 117.22 POC Glucometer Random Glucose 109 H Hemoglobin A1c % 6.0 Calcium 8.4 L Phosphorus 3.6 Magnesium 2.0 Total Bilirubin 0.5 AST 14 L ALT 20 Alkaline Phosphatase 71 Total Protein 6.2 L Albumin 2.8 L Blood Type Antibody Screen Current Medications Generic Name Dose Route Start Last Admin Trade Name Freq PRN Reason Stop Dose Admin Acetaminophen 1,000 mg 08/29/19 20:41 08/30/19 13:06 Ofirmev Injection - IVPB 1,000 mg Q6H PRN Administration PAIN LEVEL 1-5 Sodium Chloride 1,000 mls @ 100 mls/hr 08/29/19 23:00 08/30/19 09:30 Normal Saline - IV 100 mls/hr ASDIR SAJAN Administration Vancomycin HCl 1,000 mg/ 250 mls @ 166.667 mls/hr 08/30/19 10:00 Dextrose IVPB Q12H SAJAN Protocol Piperacillin Sod/Tazobactam 50 mls @ 100 mls/hr 08/30/19 02:00 Sod 3.375 gm/ Dextrose IVPB Q8H-IV SAJAN Protocol Piperacillin Sod/Tazobactam 50 mls @ 100 mls/hr 08/30/19 02:00 08/30/19 09:29 Sod 3.375 gm/ Dextrose IVPB 08/30/19 18:29 100 mls/hr Q8H-IV SAJAN Administration Protocol Vancomycin HCl 1,000 mg in 250 mls @ 166.667 mls/hr 08/30/19 08:00 08/30/19 09:29 Vancomycin (Pre-Docked) IVPB 08/30/19 21:29 166.667 mls/hr Q12H SAJAN Administration Protocol Insulin Aspart 1 vial 08/30/19 06:00 08/30/19 12:11 Novolog Vial Sliding Scale - SQ Not Given Q6H SAJAN Protocol Nicotine 21 mg 08/29/19 20:45 08/30/19 09:29 Nicoderm Patch - TD 21 mg DAILY SAJAN Administration Nicotine Polacrilex 4 mg 08/29/19 20:33 Nicorette Gum - BUC Q2H PRN NICOTINE REPLACEMENT RX Discharge Medications Medication Instructions Recorded Amox-Tr/K Cl [Augmentin - 875Mg 1 tab PO BID 7 Days #14 tablet 08/30/19 Tablet] Date of Admission:08/29/19 Date of Discharge: 08/30/19 Minutes to complete discharge: 40 Discharge Summary Problems reviewed: Yes Reason For Visit: CYST/ RIGHT BUTTOCK Current Active Problems Perianal abscess (Acute) Hospital Course: 39 year old male with remote history of DM 2 (A1C now 6.0, diet controlled), Obesity, Hx remote maricruz-anal abscess s/p I&D 14 years ago, presents with 7 day history of worsening R buttock erythema/swelling/tenderness. On presentation, he had a fever of 100.[address] A/P was performed which showed 4 x 3.2cm abscess R buttock paramedian subcutaneous gluteal fat. He was treated with IV Zosyn/Vanco and evaluated by Surgery. He underwent I and D with pressure dressing. He was cleared for discharge with daily Sitz baths with Epsom salts, and 7 additional days of Antibiotic therapy with Augmentin. Surgery follow up as out-patient in 1-2 weeks. He was advised to seek medical attention if any worsening pain, erythema, fever, chills, or discharge. Condition: Stable - Instructions Diet, Activity, Other Instructions: You were admitted with an abscess that was drained by surgery with pressure dressing applied. Surgery recommendations include daily Sitz Bath with Epsom salts from tomorrow and for an additional 7 days of oral Antibiotic, Augmentin. Please follow with surgery as an out-patient in 1-2 weeks to ensure adequate healing. Please seek medical attention if any development of fever or worsening pain/discharge. Referrals: Buster Mcintyre MD [Staff Physician] - Disposition: HOME - Home Medications Comprehensive Discharge Medication List: Ambulatory Orders Amox-Tr/K Cl [Augmentin - 875Mg Tablet] 1 tab PO BID 7 Days #14 tablet 08/30/19 This patient is new to me today: Yes Date on this admission: 08/30/19 Emergency Visit: Yes ED Registration Date: 08/29/19 Care time: The patient presented to the Emergency Department on the above date and was hospitalized for further evaluation of their emergent condition. Critical Care patient: No - Discharge Referral Referred to [facility] No
--- NOTE | 2019-08-30 17:03 | EKG ---
Test Reason : Blood Pressure : / mmHG Vent. Rate : 093 BPM Atrial Rate : 093 BPM P-R Int : 164 ms QRS Dur : 090 ms QT Int : 344 ms P-R-T Axes : 053 077 077 degrees QTc Int : 427 ms NORMAL SINUS RHYTHM NO PREVIOUS ECGS AVAILABLE Confirmed by QASIM CAMACHO MD ([id number]) on 08/30/2019 5:02:42 PM Referred By: Confirmed By:QASIM CAMACHO MD
--- NOTE | 2019-08-31 12:43 | CONS ---
INFECTIOUS DISEASE CONSULTATION DATE OF CONSULTATION: DATE OF DICTATION: 08/30/2019 HISTORY: The patient is a 39-year-old nondiabetic male evaluated for perirectal abscess. Patient was admitted to the hospital on August 29, 2019, with complaints of worsening right buttock and perianal pain, swelling, and redness. He had presented to the emergency room where he was diagnosed with a perirectal abscess. A CAT scan of the abdomen and pelvis was performed and showed a 4.2 x 3.7-cm abscess in the subcutaneous fat of the right buttock with significant surrounding stranding and skin thickening. He was seen in consultation by surgery. He was empirically treated with Zosyn. A bedside incision and drainage was performed. Patient has no complaints of pain at the present time. He has had low-grade fever. He reports a history of perirectal abscesses and pilonidal cysts in the past. He was hospitalized at [facility] approximately 15 years ago for a perirectal abscess, which required incision and drainage. He denies history of multidrug-resistant pathogens. He is a nondiabetic. He has a history of asthma but is not steroid dependent. PAST MEDICAL HISTORY: Positive for asthma, history of recurrent perirectal abscesses and pilonidal cysts. PAST SURGICAL HISTORY: Status post gastric band. ALLERGIES: No known allergies. MEDICATIONS: Include Tylenol, Zosyn, vancomycin. 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 He is a smoker. SYSTEMS REVIEW: Neurologic: No loss of consciousness, seizure activity, focal weakness. Cardiac: Negative chest pain or palpitations. Respiratory: Negative cough or sputum production. Gastrointestinal: As per HPI. Genitourinary: Negative for urinary tract infection. LABORATORY DATA: White count on admission 12.1, presently 9.7, hematocrit 41.6, platelets 200, creatinine 0.7. Blood cultures negative. PHYSICAL EXAMINATION: General: He is awake and alert. He is prone in bed. Vital Signs: Temperature 98.8, maximum temperature 100.8, blood pressure 130/72, pulse 70 regular, respirations 20 per minute. HEENT: Sclerae anicteric. Heart: Sounds S1, S2. Lungs: Clear. Abdomen: Obese, soft, nontender. Skin: Examination of the buttock area, there is an incisional wound present in the right lower buttock with bloody drainage expressible. There is surrounding erythema and induration. No expressible pus or foul odor. IMPRESSION: 1. Status post incision and drainage right perirectal abscess. 2. Leukocytosis, resolved. 3. Low-grade fever. PLAN: May substitute Augmentin 875 mg p.o. twice daily for an additional 7 days. Outpatient surgical follow up. Local wound care. Thank you for the kind referral. EDUAR ALLEN M.D. [id number]
--- NOTE | 2019-08-31 15:42 | OP ---
DATE OF OPERATION: 08/30/2019 PROCEDURE: Incision and drainage of perirectal abscess. SURGEON: Buster Mcintyre DO METER [employer]ERS SUPERVISOR: None. ANESTHESIA: Local. FINDINGS: 30 mL of daniels pus with anaerobic smell. BLOOD LOSS: Approximately 5 mL. INCISION SIZE: Approximately 3 cm. COMPLICATIONS: None. DISPOSITION: Likely to be discharged home. BRIEF HISTORY: This is a 39-year-old male who presented to the [facility] Emergency Room with complaints of a perirectal abscess. Decision was made by the ED staff to defer incision and drainage to inpatient by the general surgery service. The patient was admitted to the hospital, placed on Zosyn antibiotic, and presents now for incision and drainage at bedside. DESCRIPTION OF PROCEDURE: The patient is placed in the prone position. The perirectal area is prepped and draped in sterile fashion. At the 1 o'clock position, there is an area of fluctuance. A 3-cm incision is made over the area of fluctuance. Approximately 20 mL of daniels, anaerobic smelling pus is expressed. The wound is irrigated. Pressure dressing is placed. PLAN: Patient is surgically stable for discharge. He can go home on a 5-day course of Augmentin or longer if the ID service deems appropriate. He can remove his pressure dressing tomorrow at this point he is welcome to shower with soap and water going directly into the wound. He should do soaks 3 times a day in warm water and Epsom salt and apply a dry dressing. He will follow me in 3 weeks' time to evaluate that this has healed and that a fistula has not formed. Informed consent was taken verbally at bedside prior to the procedure. 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 He also understood that there is a chance that this could develop into a fistula. DO SANJIV [id number]
== END 2019-08-30 17:35 | disposition home or self-care (01) | DRG 395 ==
LOC: JERFT 12:48 → JER 12:48 → JERBED 18:58 → J8W 23:05
PROVIDERS: ADMIT Internal Medicine
PROC: 0J993ZZ Drainage of Buttock Subcutaneous Tissue and Fascia, Percutaneous Approach (ICD-10-PCS; principal; 2019-08-30)
DX: K61.1 Rectal abscess (principal); E66.9 Obesity, unspecified; Z68.38 Body mass index [BMI] 38.0-38.9, adult; E88.09 Other disorders of plasma-protein metabolism, not elsewhere classified; F17.210 Nicotine dependence, cigarettes, uncomplicated
CPT/HCPCS: 36415; 72193-TC; 80053; 82962; 83036; 83735; 84100; 85025; 85027; 85610; 85730; 86850; 86900; 86901; 87040; 93005; 93010; 99285-25; J0131; J7030; Q9967